=== PATIENT | female | born 2000 | race Caucasian/White ===

== ENCOUNTER 2022-06-20 12:04 | Emergency (ER) | payer BC, SELFPAY ==
[2022-06-20 12:29] VITALS: BP 131/73; PULSE 97; RESP 16; TEMP 37.2; O2SAT 99
--- NOTE | 2022-06-20 13:36 | ED.GENADULT ---
HPI - General Adult General Chief complaint: Urogenital-Female Stated complaint: left side kidney,dark urine Source: patient Mode of arrival: ambulatory Limitations: no limitations History of Present Illness HPI narrative: Patient presents for evaluation of urinary symptoms. She indicates that yesterday afternoon she experience some left-sided abdominal/flank pain. She also experienced some urinary urgency. She over from sleep this morning with persistent urgency that improved throughout the day. She also noted concentrated appearance to her urine. She has a history of kidney stones but pain associated with those in the past was quite severe. She states pain that she experienced yesterday was much more mild in severity. No fever, chills, nausea, vomiting, dysuria, or other urinary symptoms, vaginal bleeding or discharge. LMP in the middle of May 2022. She is sexually active. Not on contraception. Related Data Allergies Allergy/AdvReac Type Severity Reaction Status Date / Time No Known Allergies Allergy Unknown Unverified 06/20/22 12:46 Review of Systems Review of Systems: CONSTITUTIONAL: Denies fever, chills, or sweats. EYES: Denies visual changes, redness, or discharge. ENT: Denies rhinorrhea, congestion, sore throat, or otalgia. CARDIOVASCULAR: Denies chest pain, palpitations, or edema. RESPIRATORY: Denies cough or dyspnea. GASTROINTESTINAL: Reports recent left flank/abdominal pain, now improved. Denies nausea, vomiting, or diarrhea. GENITOURINARY: Reports recent concentrated appearance to her urine. Reports recent urinary urgency, now improved. Denies any dysuria, vaginal bleeding or discharge. SKIN: Denies rash or itching. MUSCULOSKELETAL: Denies back pain, joint pain, or myalgia. NEUROLOGIC: Denies headache, numbness, dizziness, or weakness. PSYCHIATRIC: Denies anxiety or depression. [facility] Past Medical History Medical History (Updated 06/20/22 @ 14:00 by Kamar Rhoades, SHANIQUE, AXEL) Kidney stones Renal colic Surgical History Surgical History No pertinent past surgical history Family History Family History Mother Family history non-contributory Social History Social History Substance use: never Sexual Orientation (if Verbalized by the Patient): Straight or Heterosexual Spiritual care concerns: No Exam Narrative: GENERAL: Well-appearing, well-nourished, and in no acute distress. HEAD: Normocephalic, atraumatic. EYES: PERRLA and EOMI. ENT: Nares clear, no rhinorrhea or epistaxis. Mucous membranes moist. Oropharynx without tonsillar hypertrophy exudate or other lesions. Bilateral TMs pearly wiley nonbulging NECK: Supple. No adenopathy or masses. No carotid bruits or JVD CHEST: Clear to auscultation. No respiratory distress. No wheezes rales or rhonchi HEART: Regular rate and rhythm. No murmur heard. Normal peripheral pulses. ABDOMEN: Soft, nontender, nondistended, normal active bowel sounds. EXTREMITIES: Normal range of motion. No edema. BACK: No CVA tenderness SKIN: Warm, dry, no rash. NEURO: No focal deficits. Alert and oriented x3. PSYCH: Normal mood and affect. Course Course Emergency Course: This is a 21-year-old female who presented for evaluation of left flank/abdominal pain yesterday which improved today. I believe she had a kidney stone which she passed. There is some microscopic hematuria on her urinalysis. Her is negative. There does not appear to be any infection on her urinalysis today. I suspect that any residual symptoms are related to renal colic. I will discharge her with a small quantity of [place] and a follow-up information with Urology. She should go to the emergency department for worsening symptoms. Patient in agreement with plan of care. Level of Care: Express Care Visit
== END 2022-06-20 14:07 | disposition home or self-care (01) ==
PROVIDERS: Emergency Provider Nurse Practitioner
DX: N23 Unspecified renal colic (principal); R31.29 Other microscopic hematuria
CPT/HCPCS: 81003; 81025; 99203; G0463